=== PATIENT | female | born 1985 | race Caucasian/White ===

== ENCOUNTER 2016-05-23 09:28 | Emergency (ER) | payer OTHER ==
[~2016-05-23 09:28] MED LIST: ACET50TA PO; ANUS2.5C2 TOP; COLA100C PO; DIBU0.5O TOP; FISH1000 PO; IBUP-1114 PO; MILKSUS PO; PREN1TAB11 PO; TUMS500C PO
[2016-05-23] MEDS ORDERED: KETOROLAC 30 MG/ML VIAL (J1885) As Ordered ONE (10:08)
[2016-05-23] MEDS ORDERED: GASTROGRAFIN SOLUTION 30ML (Q9963) As Ordered ONE (10:08)
[2016-05-23 10:22] LABS: BASO # 0.1 K/mm3 (0.0-0.2); BASO % 0.5 % (0.0-1.0); EOS # 0.1 K/mm3 (0.0-0.50); EOS % 1.2 % (0.0-3.0); LARGE UNSTAINED CELL # 0.1 K/mm3 (0.0-0.4); LARGE UNSTAINED CELL % 1.3 % (0.0-4.0); LYMPH % 18.2 % (24.0-44.0); MEAN CORPUSCULAR HEMOGLOBIN 30.2 pg (27.0-33.0); MEAN CORPUSCULAR HGB CONC 33.3 g/dl (32.0-36.5); MEAN CORPUSCULAR VOLUME 90.6 fl (80.0-96.0); MONO # 0.6 K/mm3 (0.0-0.8); MONO % 5.4 % (0.0-5.0); NEUTROPHILS % 73.4 % (36.0-66.0); PLATELET COUNT, AUTOMATED 346 k/mm3 (150-450); RED CELL DISTRIBUTION WIDTH 12.3 % (11.5-14.5); WHITE BLOOD COUNT 10.8 K/mm3 (4.0-10.0)
[2016-05-23 10:47] LABS: ALBUMIN 3.7 GM/DL (3.2-5.2); ALBUMIN/GLOBULIN RATIO 0.97 (1.00-1.93); ALKALINE PHOSPHATASE 100 U/L (45-117); ALT/SGPT 24 U/L (12-78); ANION GAP 10 MEQ/L (8-16); AST/SGOT 16 U/L (15-37); BILIRUBIN,DIRECT < 0.1 MG/DL (0.0-0.2); BILIRUBIN,TOTAL 0.5 MG/DL (0.2-1.0); BLOOD UREA NITROGEN 15 MG/DL (7-18); CALCIUM LEVEL 8.4 MG/DL (8.5-10.1); CARBON DIOXIDE LEVEL 26 MEQ/L (21-32); CHLORIDE LEVEL 105 MEQ/L (98-107); GLOMERULAR FILTRATION RATE > 60.0 (>60); GLUCOSE, FASTING 87 MG/DL (70-105); POTASSIUM SERUM 3.9 MEQ/L (3.5-5.1); SODIUM LEVEL 141 MEQ/L (136-145); TOTAL PROTEIN 7.5 GM/DL (6.4-8.2)
--- NOTE | 2016-05-23 12:13 | REP ---
CT STUDY OF THE ABDOMEN AND PELVIS WITH ORAL BUT WITHOUT IV CONTRAST: HISTORY: Ovarian cyst, question stone or appendicitis. Right lower quadrant pain. No comparison imaging. CT FINDINGS: Preliminary lining scrubber radiograph is noncontributory. The lung bases are clear. The liver and the spleen are normal in size and homogeneous in texture. No adrenal lesion is seen. Pancreas is unremarkable. No gallbladder abnormality is observed. There is no evidence of hydronephrosis affecting either kidney. No intrarenal calculus mass or cyst is seen. Normal appendix is seen posterior to the cecum in the right mid to lower abdomen. Small and large intestinal bowel loops are unremarkable. No ureteral stone or bladder calculus is seen. There are phleboliths in the left pelvis. Uterus is tipped slightly to the right. No ovarian mass or cyst is seen. Normal inguinal lymph nodes are seen bilaterally. No pelvic mass or adenopathy is seen. No abdominal wall defect or bony destructive lesion seen. IMPRESSION: No acute abdominal or pelvic abnormality. Normal appendix seen. No urinary tract calculus or hydronephrosis seen. Signed by John Gordon MD 05/23/2016 02:01 P
--- NOTE | 2016-05-23 12:20 | EDDOCDS ---
Nurse's Notes [facility] Name: Yudy Dumont Age: 31 yrs Sex: Female : 1985 Arrival Date: 05/23/2016 Time: 09:28 Bed I3 / M3 Private MD: Alison Rodriguez [facility] Diagnosis: Lower abdominal pain, unspecified-rlq;Urinary tract infection, site not specified Presentation: 05/23 09:33 Presenting complaint: Patient states: Was sent by [facility] for r/o appe based on jo3 RLQ pain. Pain started Thursday and has gotten progressively worse. Risk factors: the patient reports no vaginal bleeding. Adult Sepsis Screening: The patient does not have new or worsening altered mentation. Patient's respiratory rate is less than 22. Systolic blood pressure is greater than 100. Patient has a qSOFA score of 0- Negative Sepsis Screen. Suicide/Homicide risk assessment- the patient denies having any suicidal and/or homicidal ideations and does not present with any other emotional, behavioral or mental health complaints. 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 Transition of care: patient was not received from another setting of care. 09:33 Acuity: LEXI Level 3 jo3 09:33 Method Of Arrival: Ambulance jo3 Triage Assessment: 09:36 General: Appears in no apparent distress, Behavior is appropriate for age, cooperative. jo3 Pain: Pain currently is 6 out of 10 on a pain scale. At worst was 8 out of 10 on a pain scale. Pt Declines HIV testing. Neurological: Level of Consciousness is awake, alert, Oriented to person, place, time. Respiratory: Airway is patent Respiratory effort is even, unlabored. Derm: Skin is pink, warm & dry. RING FACER: 09:36 LMP 05/05/2016 jo3 Historical: - Allergies: No known drug Allergies; - Home Meds: 1. Nexplanon implanted BC - PMHx: none; - PSHx: left ACL reconstruction; - Social history: Smoking status: Patient uses tobacco products, heavy tobacco smoker. No barriers to communication noted, The patient speaks fluent Filipino, Speaks appropriately for age. - Family history: Not pertinent. - : The pt / caregiver states he / she is not on anticoagulants. Home medication list is obtained from the patient. - Exposure Risk Screening:: None identified. Screenin:12 Screening information is obtained from the patient. Fall risk: No risks identified. pml Assistance ADL's: requires no assistance with activities of daily living. Abuse/DV Screen: The patient / caregiver reports he/she is: not in a situation that causes fear, pain or injury. Nutritional screening: No deficits noted. Advance Directives: Currently, there is no health care proxy. home support is adequate. Assessment: 10:12 General: Appears in no apparent distress, comfortable, Behavior is appropriate for age, pml cooperative. Pain: Location: suprapubic area and right lower quadrant Pain currently is 5 out of 10 on a pain scale. Quality of pain is described as aching. Neurological: Level of Consciousness is awake, alert, Oriented to person, place, time. Cardiovascular: Capillary refill < 3 seconds. Respiratory: Airway is patent Respiratory effort is even, unlabored, Respiratory pattern is regular, symmetrical. GI: Abdomen is non- distended Bowel sounds present X 4 quads. Abd is soft X 4 quads. Derm: Skin is pink, warm & dry. 11:37 General: pt to CT scan - tolerated without complaints. resps easy and unlabored, skin pml p/w/d . 12:18 General: Appears in no apparent distress, comfortable, Behavior is appropriate for age, pml cooperative. Pain: Location: suprapubic area Pain currently is 3 out of 10 on a pain scale. Neurological: Level of Consciousness is awake, alert, Oriented to person, place, time. Cardiovascular: Capillary refill < 3 seconds. Respiratory: Airway is patent Respiratory effort is even, unlabored. Derm: Skin is pink, warm & dry. Vital Signs: 09:30 BP 132 / 76; Pulse 91; Resp 18 S; Temp 98.1(O); Pulse Ox 99% on R/A; Weight 76.2 kg dd6 (R); Height 5 ft. 4 in. (162.56 cm) (R); 10:53 Pain 2/10; kc3 11:57 BP 124 / 75; Pulse 91; Resp 18; Temp 96.6(O); Pulse Ox 99% on R/A; Pain 1/10; rn1 09:30 Body Mass Index 28.84 (76.20 kg, 162.56 cm) dd6 Vitals: 09:30 Log In Time: May 23, 2016 at 09:28. dd6 ED Course: 09:29 Patient visited by Nicole Osorio, Water Plumber. lbd 09:29 Patient moved to Waiting lbd 09:30 [facility] is Private Physician. lbd 09:32 Patient moved to Pre RCE dd6 09:35 Triage Initiated jo3 09:38 Patient visited by Kathy Addison RN. jo3 09:38 Yoselin Jay PA-C is PHCP. dt4 09:38 Altagracia Cline MD is Attending Physician. dt4 09:38 Patient visited by Yoselin Jay PA-C. dt4 09:38 Patient moved to Triage 2 jo3 09:55 Patient moved to I3 / M3 jo3 10:03 [facility] Payment Agreement was scanned into [employer] and attached to record. lg 10:12 The patient / caregiver is instructed regarding the plan of care and ED course. Patient pml has correct armband on for positive identification. Placed in gown. Bed in low position. Call light in reach. Side rails up X2. 10:12 Inserted peripheral IV: 20gauge IV in left antecubital area and blood collected. pml Patient tolerated the procedure well. 10:16 Patient visited by Aleksandra Govea,CLYDE. pml 10:53 Patient visited by Kellie Antonio,CLYDE. kc3 11:37 Aleksandra Govea,CLYDE is Primary Nurse. pml 11:37 Patient visited by Aleksandra Govea,CLYDE. pml 12:10 [facility] is Referral Physician. dt4 12:15 CT ABD & PELVIS: Oral Contrast Only Returned. EDMS 12:18 Discontinued lock intact, bleeding controlled, pressure dressing applied, No pml redness/swelling at site. No procedures done that require assistance. Administered Medications: 10:15 Drug: Diatrizoate Meglumine & Sodium 10 ml [diatrizoate meglumine and diat.sodium 66 kc3 %-10 % oral solution (10 mL)] Route: PO; 10:17 Drug: NS 0.9% 1000 ml [sodium chloride 0.9 % intravenous solution] Route: IV; Rate: kc3 bolus; Site: left antecubital; 12:19 Follow up: IV Status: Completed infusion; IV Intake: 1000ml pml 10:18 Drug: ketorolac 30 mg [ketorolac 30 mg/mL (1 mL) injection solution (1 mL)] Route: IVP; kc3 Site: left antecubital; 10:53 Follow up: Pain 06/06 Adult kc3 10:53 Drug: Diatrizoate Meglumine & Sodium 10 ml [diatrizoate meglumine and diat.sodium 66 kc3 %-10 % oral solution (10 mL)] Route: PO; Point of Care Testing: Urine : 10:12 hCG Reading: Negative; Control Reading: Positive; pml Ranges: Intake: 12:19 IV: 1000.00ml; Total: 1000.00ml. pml Order Results: Lab Order: Basic Metabolic Profile; SPEC'M 05/23/16 10:07 Test: GLUCOSE, FASTING; Value: 87; Range: 70-105; Units: MG/DL; Status: F Test: BLOOD UREA NITROGEN; Value: 15; Range: 7-18; Units: MG/DL; Status: F Test: CREATININE FOR GFR; Value: 1.00; Range: 0.55-1.02; Units: MG/DL; Status: F Test: GLOMERULAR FILTRATION RATE; Value: > 60.0; Range: >60; Status: F Test: SODIUM LEVEL; Value: 141; Range: 136-145; Units: MEQ/L; Status: F Test: POTASSIUM SERUM; Value: 3.9; Range: 3.5-5.1; Units: MEQ/L; Status: F Test: CHLORIDE LEVEL; Value: 105; Range: 98-107; Units: MEQ/L; Status: F Test: CARBON DIOXIDE LEVEL; Value: 26; Range: 21-32; Units: MEQ/L; Status: F Test: ANION GAP; Value: 10; Range: 8-16; Units: MEQ/L; Status: F Test: CALCIUM LEVEL; Value: 8.4; Range: 8.5-10.1; Abnormal: Below low normal; Units: MG/DL; Status: F Test Note: ; Units are mL/min/1.73 m2 Chronic Kidney Disease Staging per NKF: Stage I & II GFR >=60 Normal to Mildly Decreased Stage III GFR 30-59 Moderately Decreased Stage IV GFR 15-29 Severely Decreased Stage V GFR <15 Very Little GFR Left ESRD GFR <15 on MAGAZINE SUPERVISOR Lab Order: CBC with Diff; SPEC'M 05/23/16 10:07 Test: WHITE BLOOD COUNT; Value: 10.8; Range: 4.0-10.0; Abnormal: Above high normal; Units: K/mm3; Status: F Test: RED BLOOD COUNT; Value: 4.67; Range: 4.00-5.40; Units: M/mm3; Status: F Test: HEMOGLOBIN; Value: 14.1; Range: 12.0-16.0; Units: g/dl; Status: F Test: HEMATOCRIT; Value: 42.3; Range: 36.0-47.0; Units: %; Status: F Test: MEAN CORPUSCULAR VOLUME; Value: 90.6; Range: 80.0-96.0; Units: fl; Status: F Test: MEAN CORPUSCULAR HEMOGLOBIN; Value: 30.2; Range: 27.0-33.0; Units: pg; Status: F Test: MEAN CORPUSCULAR HGB CONC; Value: 33.3; Range: 32.0-36.5; Units: g/dl; Status: F Test: RED CELL DISTRIBUTION WIDTH; Value: 12.3; Range: 11.5-14.5; Units: %; Status: F Test: PLATELET COUNT, AUTOMATED; Value: 346; Range: 150-450; Units: k/mm3; Status: F Test: NEUTROPHILS %; Value: 73.4; Range: 36.0-66.0; Abnormal: Above high normal; Units: %; Status: F Test: LYMPH %; Value: 18.2; Range: 24.0-44.0; Abnormal: Below low normal; Units: %; Status: F Test: MONO %; Value: 5.4; Range: 0.0-5.0; Abnormal: Above high normal; Units: %; Status: F Test: EOS %; Value: 1.2; Range: 0.0-3.0; Units: %; Status: F Test: BASO %; Value: 0.5; Range: 0.0-1.0; Units: %; Status: F Test: LARGE UNSTAINED CELL %; Value: 1.3; Range: 0.0-4.0; Units: %; Status: F Test: NEUTROPHILS #; Value: 8.0; Range: 1.8-7.7; Abnormal: Above high normal; Units: K/mm3; Status: F Test: LYMPH #; Value: 2.0; Range: 1.5-4.5; Units: K/mm3; Status: F Test: MONO #; Value: 0.6; Range: 0.0-0.8; Units: K/mm3; Status: F Test: EOS #; Value: 0.1; Range: 0.0-0.50; Units: K/mm3; Status: F Test: BASO #; Value: 0.1; Range: 0.0-0.2; Units: K/mm3; Status: F Test: LARGE UNSTAINED CELL #; Value: 0.1; Range: 0.0-0.4; Units: K/mm3; Status: F Lab Order: Lipase; SPEC' 05/23/16 10:07 Test: LIPASE; Value: 109; Range: 73-393; Units: U/L; Status: F Lab Order: Liver Profile; SPEC' 05/23/16 10:07 Test: AST/SGOT; Value: 16; Range: 15-37; Units: U/L; Status: F Test: ALT/SGPT; Value: 24; Range: 12-78; Units: U/L; Status: F Test: ALKALINE PHOSPHATASE; Value: 100; Range: 45-117; Units: U/L; Status: F Test: BILIRUBIN,TOTAL; Value: 0.5; Range: 0.2-1.0; Units: MG/DL; Status: F Test: BILIRUBIN,DIRECT; Value: < 0.1; Range: 0.0-0.2; Units: MG/DL; Status: F Test: TOTAL PROTEIN; Value: 7.5; Range: 6.4-8.2; Units: GM/DL; Status: F Test: ALBUMIN; Value: 3.7; Range: 3.2-5.2; Units: GM/DL; Status: F Test: ALBUMIN/GLOBULIN RATIO; Value: 0.97; Range: 1.00-1.93; Abnormal: Below low normal; Status: F Lab Order: Urinalysis; SPEC' 05/23/16 10:07 Test: APPEARANCE, URINE; Value: CLOUDY; Range: CLEAR; Abnormal: Above high normal; Status: F Test: COLOR, URINE; Value: YELLOW; Range: YELLOW; Status: F Test: PH,URINE; Value: 5.0; Range: 5.0-9.0; Units: UNITS; Status: F Test: SPECIFIC GRAVITY URINE AUTO; Value: 1.023; Range: 1.002-1.035; Status: F Test: PROTEIN, URINE AUTO; Value: NEGATIVE; Range: NEGATIVE; Units: mg/dL; Status: F Test: GLUCOSE, URINE (UA) AUTO; Value: NEGATIVE; Range: NEGATIVE; Units: mg/dL; Status: F Test: KETONE, URINE AUTO; Value: TRACE; Range: NEGATIVE; Abnormal: Above high normal; Units: mg/dL; Status: F Test: UROBILINOGEN, URINE AUTO; Value: 2.0; Range: 0.0-2.0; Abnormal: Above high normal; Units: mg/dL; Status: F Test: BILIRUBIN, URINE AUTO; Value: NEGATIVE; Range: NEGATIVE; Status: F Test: NITRITE, URINE AUTO; Value: NEGATIVE; Range: NEGATIVE; Status: F Test: LEUKOCYTE ESTERASE, URINE AUTO; Value: 1+; Range: NEGATIVE; Abnormal: Above high normal; Status: F Test: BLOOD, URINE BLOOD; Value: 2+; Range: NEGATIVE; Abnormal: Above high normal; Status: F Test: WBC, URINE AUTO; Value: 3; Range: 0-3; Units: /HPF; Status: F Test: RBC, URINE AUTO; Value: 6; Range: 0-3; Abnormal: Above high normal; Units: /HPF; Status: F Test: BACTERIA, URINE AUTO; Value: 1+; Range: NEGATIVE; Abnormal: Above high normal; Status: F Test: SQUAMOUS EPITHELIAL CELL UR AU; Value: 22; Range: 0-6; Units: /HPF; Status: F Test: MUCUS, URINE; Value: SMALL; Range: NEGATIVE; Status: F Test: HYALINE CAST, URINE AUTO; Value: 0; Range: 0-1; Units: /LPF; Status: F Lab Order: CRP; SPEC'M 05/23/16 10:07 Test: C REACTIVE PROTEIN QUANTITATIV; Value: 4.39; Range: 0.00-0.30; Abnormal: Above high normal; Units: MG/DL; Status: F Radiology Order: CT ABD & PELVIS: Oral Contrast Only Test: CT ABD & PELVIS: Oral Contrast Only REASON FOR EXAMINATION: ?STONE, OV CYST;Appendicitis/RLQ Pain; CT STUDY OF THE ABDOMEN AND PELVIS WITH ORAL BUT WITHOUT IV CONTRAST:; ; HISTORY: Ovarian cyst, question stone or appendicitis. Right lower quadrant; pain.; ; No comparison imaging.; ; CT FINDINGS: Preliminary production assembly operator radiograph is noncontributory. The lung bases; are clear. The liver and the spleen are normal in size and homogeneous in; texture. No adrenal lesion is seen. Pancreas is unremarkable. No gallbladder; abnormality is observed. There is no evidence of hydronephrosis affecting either; kidney. No intrarenal calculus mass or cyst is seen. Normal appendix is seen; posterior to the cecum in the right mid to lower abdomen. Small and large; intestinal bowel loops are unremarkable. No ureteral stone or bladder calculus; is seen. There are phleboliths in the left pelvis. Uterus is tipped slightly to; the right. No ovarian mass or cyst is seen. Normal inguinal lymph nodes are; seen bilaterally. No pelvic mass or adenopathy is seen. No abdominal wall; defect or bony destructive lesion seen.; ; IMPRESSION:; No acute abdominal or pelvic abnormality. Normal appendix seen. No urinary; tract calculus or hydronephrosis seen.; ; ; ; ; Unreviewed; Outcome: 12:10 Discharge ordered by Provider. dt4 12:18 Discharge Assessment: Patient awake, alert and oriented x 3. No cognitive and/or pml functional deficits noted. Patient verbalized understanding of disposition instructions. patient administered narcotics - no. The following High Risk Discharge criteria are identified: None. Discharged to home ambulatory. Condition: good Condition: stable. Discharge instructions given to patient, Instructed on discharge instructions, follow up and referral plans. medication usage, Demonstrated understanding of instructions, medications, Pt was receptive of discharge instructions/ teaching. Prescriptions given X 2. CT Study completed. Property sent home with patient. 12:19 Patient left the ED. pml Signatures: Dispatcher [employer] EDMS Nicole Osorio, Water Plumber Unit Jose Sandy, Rambo Reg Kathy KhanRN RN jo3 Reji Gaines, HIV PREVENTION SPECIALIST HIV PREVENTION SPECIALIST dd6 Aleksandra Govea RN RN Yoselin Roberts, PA-C PA-C dt4 Steve Bravo rn1 Kellie Antonio,CLYDE RN kc3 Corrections: (The following items were deleted from the chart) 09:38 09:33 Presenting complaint: Patient states: Was sent by [facility] for r/o appe jo3 based on RLQ pain jo3 MTDD
--- NOTE | 2016-05-23 12:20 | EDDOCDS ---
Physician Documentation [facility] Name: Yudy Dumont Age: 31 yrs Sex: Female : 1985 Arrival Date: 05/23/2016 Time: 09:28 Bed I3 / M3 Private MD: Alison Rodriguez [facility] Disposition: 05/23/16 12:10 Discharged to Home/Self Care. Impression: Lower abdominal pain, unspecified - rlq, Urinary tract infection, site not specified. - Condition is Stable. - Discharge Instructions: Urinary Tract Infection, Abdominal Pain, Women. - Prescriptions for Pyridium 200 mg Oral Tablet - take 1 tablet by ORAL route every 8 hours for 2 days; 6 tablet. Macrobid 100 mg Oral Capsule - take 100 milligrams by ORAL route every 12 hours for 7 days; 14 capsule. - Medication Reconciliation, Local Pharmacy Hours form. - Follow up: Emergency Department; When: As needed; Reason: Worsening of conditions. Follow up: Alison Rodriguez [facility]; When: 2 - 3 days; Reason: Wound/Symptom Recheck, Recheck today's complaints, Continuance of care. - Problem is new. - Symptoms have improved. Historical: - Allergies: No known drug Allergies; - Home Meds: 1. Nexplanon implanted BC - PMHx: none; - PSHx: left ACL reconstruction; - Social history: Smoking status: Patient uses tobacco products, heavy tobacco smoker. No barriers to communication noted, The patient speaks fluent Croatian, Speaks appropriately for age. - Family history: Not pertinent. - : The pt / caregiver states he / she is not on anticoagulants. Home medication list is obtained from the patient. - Exposure Risk Screening:: None identified. 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 4 in. (162.56 cm) (R); 10:53 Pain 2/10; kc3 11:57 BP 124 / 75; Pulse 91; Resp 18; Temp 96.6(O); Pulse Ox 99% on R/A; Pain 1/10; rn1 09:30 Body Mass Index 28.84 (76.20 kg, 162.56 cm) dd6 MDM: 09:50 Financial registration complete. lg 09:51 NS 0.9% 1000 ml IV at bolus once ordered. dt4 09:51 ketorolac 30 mg IVP once ordered. dt4 09:51 IV Saline Lock ordered. dt4 09:51 Undress patient appropriately for examination ordered. dt4 09:51 UCG by Nursing ordered. dt4 09:52 Basic Metabolic Profile Ordered. EDMS 09:52 CBC with Diff Ordered. EDMS 09:52 Lipase Ordered. EDMS 09:52 Liver Profile Ordered. EDMS 09:52 Urinalysis Ordered. EDMS 09:52 CRP Ordered. EDMS 09:53 Urine Culture Ordered. EDMS 09:53 NOTHING BY MOUTH+DIET ordered. EDMS 10:03 [facility] Payment Agreement was scanned into [employer] and attached to record. lg 10:18 Diatrizoate Meglumine & Sodium Liquid 10 ml PO once; mix in 290cc of water ordered. kc3 10:18 Diatrizoate Meglumine & Sodium Liquid 10 ml PO once; mix in 290cc of water - give at kc3 1045 ordered. 11:27 CT ABD & PELVIS: Oral Contrast Only Ordered. EDMS Point of Care Testing: Urine : 10:12 hCG Reading: Negative; Control Reading: Positive; pml Ranges: Administered Medications: 10:15 Drug: Diatrizoate Meglumine & Sodium 10 ml [diatrizoate meglumine and diat.sodium 66 kc3 %-10 % oral solution (10 mL)] Route: PO; 10:17 Drug: NS 0.9% 1000 ml [sodium chloride 0.9 % intravenous solution] Route: IV; Rate: kc3 bolus; Site: left antecubital; 12:19 Follow up: IV Status: Completed infusion; IV Intake: 1000ml pml 10:18 Drug: ketorolac 30 mg [ketorolac 30 mg/mL (1 mL) injection solution (1 mL)] Route: IVP; kc3 Site: left antecubital; 10:53 Follow up: Pain / Adult kc3 10:53 Drug: Diatrizoate Meglumine & Sodium 10 ml [diatrizoate meglumine and diat.sodium 66 kc3 %-10 % oral solution (10 mL)] Route: PO; Signatures: Dispatcher [employer] EDMS Maddi Jose, Reg Reg lg Kathy AddisonRN RN jo3 Aleksandra GoveaRN RN Yoselin Roberts PA-C PA-C dt4 Kellie AntonioRN RN kc3 The chart was reviewed and I authenticate all verbal orders and agree with the evaluation and treatment provided.Corrections: (The following items were deleted from the chart) 11:12 09:53 CT ABD & PELVIS WITH CONTRAST+CT ordered. EDMS EDMS 11:32 11:10 CT ABD & PELVIS W/O CONTRAST+CT ordered. EDMS EDMS Attachments: 10:03 [facility] [place] Agreement lg MTDD
--- NOTE | 2016-05-25 13:21 | EDDOCDS ---
Physician Documentation [facility] Name: Yudy Dumont Age: 31 yrs Sex: Female : 1985 Arrival Date: 05/23/2016 Time: 09:28 Bed I3 / M3 Private MD: Alison Rodriguez [facility] Disposition: 05/23/16 12:10 Discharged to Home/Self Care. Impression: Lower abdominal pain, unspecified - rlq, Urinary tract infection, site not specified. - Condition is Stable. - Discharge Instructions: Urinary Tract Infection, Abdominal Pain, Women. - Prescriptions for Pyridium 200 mg Oral Tablet - take 1 tablet by ORAL route every 8 hours for 2 days; 6 tablet. Macrobid 100 mg Oral Capsule - take 100 milligrams by ORAL route every 12 hours for 7 days; 14 capsule. - Medication Reconciliation, Local Pharmacy Hours form. - Follow up: Emergency Department; When: As needed; Reason: Worsening of conditions. Follow up: Alison Rodriguez [facility]; When: 2 - 3 days; Reason: Wound/Symptom Recheck, Recheck today's complaints, Continuance of care. - Problem is new. - Symptoms have improved. Historical: - Allergies: No known drug Allergies; - Home Meds: 1. Nexplanon implanted BC - PMHx: none; - PSHx: left ACL reconstruction; - Social history: Smoking status: Patient uses tobacco products, heavy tobacco smoker. No barriers to communication noted, The patient speaks fluent Croatian, Speaks appropriately for age. - Family history: Not pertinent. - : The pt / caregiver states he / she is not on anticoagulants. Home medication list is obtained from the patient. - Exposure Risk Screening:: None identified. 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 4 in. (162.56 cm) (R); 10:53 Pain 2/10; kc3 11:57 BP 124 / 75; Pulse 91; Resp 18; Temp 96.6(O); Pulse Ox 99% on R/A; Pain 1/10; rn1 09:30 Body Mass Index 28.84 (76.20 kg, 162.56 cm) dd6 MDM: 09:50 Financial registration complete. lg 09:51 NS 0.9% 1000 ml IV at bolus once ordered. dt4 09:51 ketorolac 30 mg IVP once ordered. dt4 09:51 IV Saline Lock ordered. dt4 09:51 Undress patient appropriately for examination ordered. dt4 09:51 UCG by Nursing ordered. dt4 09:52 Basic Metabolic Profile Ordered. EDMS 09:52 CBC with Diff Ordered. EDMS 09:52 Lipase Ordered. EDMS 09:52 Liver Profile Ordered. EDMS 09:52 Urinalysis Ordered. EDMS 09:52 CRP Ordered. EDMS 09:53 Urine Culture Ordered. EDMS 09:53 NOTHING BY MOUTH+DIET ordered. EDMS 10:03 [facility] Payment Agreement was scanned into [employer] and attached to record. lg 10:18 Diatrizoate Meglumine & Sodium Liquid 10 ml PO once; mix in 290cc of water ordered. kc3 10:18 Diatrizoate Meglumine & Sodium Liquid 10 ml PO once; mix in 290cc of water - give at kc3 1045 ordered. 11:27 CT ABD & PELVIS: Oral Contrast Only Ordered. EDMS 13:37 T-Sheet-- Draft Copy was scanned into [employer] and attached to record. gb 13:37 PCR was scanned into [employer] and attached to record. gb 13:37 Radiology Report was scanned into [employer] and attached to record. gb Point of Care Testing: Urine : 10:12 hCG Reading: Negative; Control Reading: Positive; pml Ranges: Administered Medications: 10:15 Drug: Diatrizoate Meglumine & Sodium 10 ml [diatrizoate meglumine and diat.sodium 66 kc3 %-10 % oral solution (10 mL)] Route: PO; 10:17 Drug: NS 0.9% 1000 ml [sodium chloride 0.9 % intravenous solution] Route: IV; Rate: kc3 bolus; Site: left antecubital; 12:19 Follow up: IV Status: Completed infusion; IV Intake: 1000ml pml 10:18 Drug: ketorolac 30 mg [ketorolac 30 mg/mL (1 mL) injection solution (1 mL)] Route: IVP; kc3 Site: left antecubital; 10:53 Follow up: Pain 2/ Adult kc3 10:53 Drug: Diatrizoate Meglumine & Sodium 10 ml [diatrizoate meglumine and diat.sodium 66 kc3 %-10 % oral solution (10 mL)] Route: PO; Signatures: Dispatcher MedHost EDMS Shin Susan, Reg Reg gb Maddi Jose, Reg Reg lg Kathy AddisonRN RN jo3 Aleksandra Govea RN RN pml Tschudi, Diane, PA-C PA-Alan dt4 Kellie Antonio RN RN kc3 The chart was reviewed and I authenticate all verbal orders and agree with the evaluation and treatment provided.Corrections: (The following items were deleted from the chart) 11:12 09:53 CT ABD & PELVIS WITH CONTRAST+CT ordered. EDMS EDMS 11:32 11:10 CT ABD & PELVIS W/O CONTRAST+CT ordered. EDMS EDMS Attachments: 10:03 [facility] Payment Agreement lg 13:37 T-Sheet-- Draft Copy gb Chart Complete [facility]
--- NOTE | 2016-05-25 13:21 | EDDOCDS ---
Physician Documentation [facility] Name: Yudy Dumont Age: 31 yrs Sex: Female : 1985 Arrival Date: 05/23/2016 Time: 09:28 Bed I3 / M3 Private MD: Alison Rodriguez [facility] Disposition: 05/23/16 12:10 Discharged to Home/Self Care. Impression: Lower abdominal pain, unspecified - rlq, Urinary tract infection, site not specified. - Condition is Stable. - Discharge Instructions: Urinary Tract Infection, Abdominal Pain, Women. - Prescriptions for Pyridium 200 mg Oral Tablet - take 1 tablet by ORAL route every 8 hours for 2 days; 6 tablet. Macrobid 100 mg Oral Capsule - take 100 milligrams by ORAL route every 12 hours for 7 days; 14 capsule. - Medication Reconciliation, Local Pharmacy Hours form. - Follow up: Emergency Department; When: As needed; Reason: Worsening of conditions. Follow up: Alison Rodriguez [facility]; When: 2 - 3 days; Reason: Wound/Symptom Recheck, Recheck today's complaints, Continuance of care. - Problem is new. - Symptoms have improved. Historical: - Allergies: No known drug Allergies; - Home Meds: 1. Nexplanon implanted BC - PMHx: none; - PSHx: left ACL reconstruction; - Social history: Smoking status: Patient uses tobacco products, heavy tobacco smoker. No barriers to communication noted, The patient speaks fluent Armenian, Speaks appropriately for age. - Family history: Not pertinent. - : The pt / caregiver states he / she is not on anticoagulants. Home medication list is obtained from the patient. - Exposure Risk Screening:: None identified. 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 4 in. (162.56 cm) (R); 10:53 Pain 2/10; kc3 11:57 BP 124 / 75; Pulse 91; Resp 18; Temp 96.6(O); Pulse Ox 99% on R/A; Pain 1/10; rn1 09:30 Body Mass Index 28.84 (76.20 kg, 162.56 cm) dd6 MDM: 09:50 Financial registration complete. lg 09:51 NS 0.9% 1000 ml IV at bolus once ordered. dt4 09:51 ketorolac 30 mg IVP once ordered. dt4 09:51 IV Saline Lock ordered. dt4 09:51 Undress patient appropriately for examination ordered. dt4 09:51 UCG by Nursing ordered. dt4 09:52 Basic Metabolic Profile Ordered. EDMS 09:52 CBC with Diff Ordered. EDMS 09:52 Lipase Ordered. EDMS 09:52 Liver Profile Ordered. EDMS 09:52 Urinalysis Ordered. EDMS 09:52 CRP Ordered. EDMS 09:53 Urine Culture Ordered. EDMS 09:53 NOTHING BY MOUTH+DIET ordered. EDMS 10:03 [facility] Payment Agreement was scanned into [employer] and attached to record. lg 10:18 Diatrizoate Meglumine & Sodium Liquid 10 ml PO once; mix in 290cc of water ordered. kc3 10:18 Diatrizoate Meglumine & Sodium Liquid 10 ml PO once; mix in 290cc of water - give at kc3 1045 ordered. 11:27 CT ABD & PELVIS: Oral Contrast Only Ordered. EDMS 13:37 T-Sheet-- Draft Copy was scanned into [employer] and attached to record. gb 13:37 PCR was scanned into [employer] and attached to record. gb 13:37 Radiology Report was scanned into [employer] and attached to record. gb Point of Care Testing: Urine : 10:12 hCG Reading: Negative; Control Reading: Positive; pml Ranges: Administered Medications: 10:15 Drug: Diatrizoate Meglumine & Sodium 10 ml [diatrizoate meglumine and diat.sodium 66 kc3 %-10 % oral solution (10 mL)] Route: PO; 10:17 Drug: NS 0.9% 1000 ml [sodium chloride 0.9 % intravenous solution] Route: IV; Rate: kc3 bolus; Site: left antecubital; 12:19 Follow up: IV Status: Completed infusion; IV Intake: 1000ml pml 10:18 Drug: ketorolac 30 mg [ketorolac 30 mg/mL (1 mL) injection solution (1 mL)] Route: IVP; kc3 Site: left antecubital; 10:53 Follow up: Pain 2/ Adult kc3 10:53 Drug: Diatrizoate Meglumine & Sodium 10 ml [diatrizoate meglumine and diat.sodium 66 kc3 %-10 % oral solution (10 mL)] Route: PO; Signatures: Dispatcher [employer] EDMS Shin Susan, Reg Reg gb Maddi Jose, Reg Reg lg Kathy AddisonRN RN jo3 Aleksandra Govea RN RN pml Tschudi, Diane, PA-C PA-Alan dt4 Kellie Antonio RN RN kc3 The chart was reviewed and I authenticate all verbal orders and agree with the evaluation and treatment provided.Corrections: (The following items were deleted from the chart) 11:12 09:53 CT ABD & PELVIS WITH CONTRAST+CT ordered. EDMS EDMS 11:32 11:10 CT ABD & PELVIS W/O CONTRAST+CT ordered. EDMS EDMS Attachments: 10:03 [facility] Payment Agreement lg 13:37 T-Sheet-- Draft Copy gb Chart Complete [facility]
--- NOTE | 2016-05-25 13:21 | EDDOCDS ---
Nurse's Notes [facility] Name: Yudy Dumont Age: 31 yrs Sex: Female : 1985 Arrival Date: 05/23/2016 Time: 09:28 Bed I3 / M3 Private MD: Alison Rodriguez [facility] Diagnosis: Lower abdominal pain, unspecified-rlq;Urinary tract infection, site not specified Presentation: 05/23 09:33 Presenting complaint: Patient states: Was sent by [facility] for r/o appe based on jo3 RLQ pain. Pain started Thursday and has gotten progressively worse. Risk factors: the patient reports no vaginal bleeding. Adult Sepsis Screening: The patient does not have new or worsening altered mentation. Patient's respiratory rate is less than 22. Systolic blood pressure is greater than 100. Patient has a qSOFA score of 0- Negative Sepsis Screen. Suicide/Homicide risk assessment- the patient denies having any suicidal and/or homicidal ideations and does not present with any other emotional, behavioral or mental health complaints. 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 Transition of care: patient was not received from another setting of care. 09:33 Acuity: LEXI Level 3 jo3 09:33 Method Of Arrival: Ambulance jo3 Triage Assessment: 09:36 General: Appears in no apparent distress, Behavior is appropriate for age, cooperative. jo3 Pain: Pain currently is 6 out of 10 on a pain scale. At worst was 8 out of 10 on a pain scale. Pt Declines HIV testing. Neurological: Level of Consciousness is awake, alert, Oriented to person, place, time. Respiratory: Airway is patent Respiratory effort is even, unlabored. Derm: Skin is pink, warm & dry. 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 Nexplanon implanted BC - PMHx: none; - PSHx: left ACL reconstruction; - Social history: Smoking status: Patient uses tobacco products, heavy tobacco smoker. No barriers to communication noted, The patient speaks fluent Portuguese, Speaks appropriately for age. - Family history: Not pertinent. - : The pt / caregiver states he / she is not on anticoagulants. Home medication list is obtained from the patient. - Exposure Risk Screening:: None identified. Screenin:12 Screening information is obtained from the patient. Fall risk: No risks identified. pml Assistance ADL's: requires no assistance with activities of daily living. Abuse/DV Screen: The patient / caregiver reports he/she is: not in a situation that causes fear, pain or injury. Nutritional screening: No deficits noted. Advance Directives: Currently, there is no health care proxy. home support is adequate. Assessment: 10:12 General: Appears in no apparent distress, comfortable, Behavior is appropriate for age, pml cooperative. Pain: Location: suprapubic area and right lower quadrant Pain currently is 5 out of 10 on a pain scale. Quality of pain is described as aching. Neurological: Level of Consciousness is awake, alert, Oriented to person, place, time. Cardiovascular: Capillary refill < 3 seconds. Respiratory: Airway is patent Respiratory effort is even, unlabored, Respiratory pattern is regular, symmetrical. GI: Abdomen is non- distended Bowel sounds present X 4 quads. Abd is soft X 4 quads. Derm: Skin is pink, warm & dry. 11:37 General: pt to CT scan - tolerated without complaints. resps easy and unlabored, skin pml p/w/d . 12:18 General: Appears in no apparent distress, comfortable, Behavior is appropriate for age, pml cooperative. Pain: Location: suprapubic area Pain currently is 3 out of 10 on a pain scale. Neurological: Level of Consciousness is awake, alert, Oriented to person, place, time. Cardiovascular: Capillary refill < 3 seconds. Respiratory: Airway is patent Respiratory effort is even, unlabored. Derm: Skin is pink, warm & dry. Vital Signs: 09:30 BP 132 / 76; Pulse 91; Resp 18 S; Temp 98.1(O); Pulse Ox 99% on R/A; Weight 76.2 kg dd6 (R); Height 5 ft. 4 in. (162.56 cm) (R); 10:53 Pain 2/10; kc3 11:57 BP 124 / 75; Pulse 91; Resp 18; Temp 96.6(O); Pulse Ox 99% on R/A; Pain 1/10; rn1 09:30 Body Mass Index 28.84 (76.20 kg, 162.56 cm) dd6 Vitals: 09:30 Log In Time: May 23, 2016 at 09:28. dd6 ED Course: 09:29 Patient visited by Nicole Osorio, Hose Wrapper. lbd 09:29 Patient moved to Waiting lbd 09:30 [facility] is Private Physician. lbd 09:32 Patient moved to Pre RCE dd6 09:35 Triage Initiated jo3 09:38 Patient visited by Kathy Addison,CLYDE. jo3 09:38 Yoselin Jay PA-C is PHCP. dt4 09:38 Altagracia Cline MD is Attending Physician. dt4 09:38 Patient visited by Yoselin Jay PA-C. dt4 09:38 Patient moved to Triage 2 jo3 09:55 Patient moved to I3 / M3 jo3 10:03 [facility] Payment Agreement was scanned into [employer] and attached to record. lg 10:12 The patient / caregiver is instructed regarding the plan of care and ED course. Patient pml has correct armband on for positive identification. Placed in gown. Bed in low position. Call light in reach. Side rails up X2. 10:12 Inserted peripheral IV: 20gauge IV in left antecubital area and blood collected. pml Patient tolerated the procedure well. 10:16 Patient visited by Aleksandra Govea,CLYDE. pml 10:53 Patient visited by Kellie Antonio,CLYDE. kc3 11:37 Aleksandra Govea,RN is Primary Nurse. pml 11:37 Patient visited by Aleksandra Govea,CLYDE. pml 12:10 [facility] is Referral Physician. dt4 12:15 CT ABD & PELVIS: Oral Contrast Only Returned. EDMS 12:18 Discontinued lock intact, bleeding controlled, pressure dressing applied, No pml redness/swelling at site. No procedures done that require assistance. 13:37 T-Sheet-- Draft Copy was scanned into [employer] and attached to record. gb 13:37 PCR was scanned into [employer] and attached to record. gb 13:37 Radiology Report was scanned into [employer] and attached to record. gb Administered Medications: 10:15 Drug: Diatrizoate Meglumine & Sodium 10 ml [diatrizoate meglumine and diat.sodium 66 kc3 %-10 % oral solution (10 mL)] Route: PO; 10:17 Drug: NS 0.9% 1000 ml [sodium chloride 0.9 % intravenous solution] Route: IV; Rate: kc3 bolus; Site: left antecubital; 12:19 Follow up: IV Status: Completed infusion; IV Intake: 1000ml pml 10:18 Drug: ketorolac 30 mg [ketorolac 30 mg/mL (1 mL) injection solution (1 mL)] Route: IVP; kc3 Site: left antecubital; 10:53 Follow up: Pain 06/06 Adult kc3 10:53 Drug: Diatrizoate Meglumine & Sodium 10 ml [diatrizoate meglumine and diat.sodium 66 kc3 %-10 % oral solution (10 mL)] Route: PO; Point of Care Testing: Urine : 10:12 hCG Reading: Negative; Control Reading: Positive; pml Ranges: Intake: 12:19 IV: 1000.00ml; Total: 1000.00ml. pml Order Results: Lab Order: Basic Metabolic Profile; SPEC'M 05/23/16 10:07 Test: GLUCOSE, FASTING; Value: 87; Range: 70-105; Units: MG/DL; Status: F Test: BLOOD UREA NITROGEN; Value: 15; Range: 7-18; Units: MG/DL; Status: F Test: CREATININE FOR GFR; Value: 1.00; Range: 0.55-1.02; Units: MG/DL; Status: F Test: GLOMERULAR FILTRATION RATE; Value: > 60.0; Range: >60; Status: F Test: SODIUM LEVEL; Value: 141; Range: 136-145; Units: MEQ/L; Status: F Test: POTASSIUM SERUM; Value: 3.9; Range: 3.5-5.1; Units: MEQ/L; Status: F Test: CHLORIDE LEVEL; Value: 105; Range: 98-107; Units: MEQ/L; Status: F Test: CARBON DIOXIDE LEVEL; Value: 26; Range: 21-32; Units: MEQ/L; Status: F Test: ANION GAP; Value: 10; Range: 8-16; Units: MEQ/L; Status: F Test: CALCIUM LEVEL; Value: 8.4; Range: 8.5-10.1; Abnormal: Below low normal; Units: MG/DL; Status: F Test Note: ; Units are mL/min/1.73 m2 Chronic Kidney Disease Staging per NKF: Stage I & II GFR >=60 Normal to Mildly Decreased Stage III GFR 30-59 Moderately Decreased Stage IV GFR 15-29 Severely Decreased Stage V GFR <15 Very Little GFR Left ESRD GFR <15 on APPLICATIONS CONSULTANT Lab Order: CBC with Diff; SPEC'M 05/23/16 10:07 Test: WHITE BLOOD COUNT; Value: 10.8; Range: 4.0-10.0; Abnormal: Above high normal; Units: K/mm3; Status: F Test: RED BLOOD COUNT; Value: 4.67; Range: 4.00-5.40; Units: M/mm3; Status: F Test: HEMOGLOBIN; Value: 14.1; Range: 12.0-16.0; Units: g/dl; Status: F Test: HEMATOCRIT; Value: 42.3; Range: 36.0-47.0; Units: %; Status: F Test: MEAN CORPUSCULAR VOLUME; Value: 90.6; Range: 80.0-96.0; Units: fl; Status: F Test: MEAN CORPUSCULAR HEMOGLOBIN; Value: 30.2; Range: 27.0-33.0; Units: pg; Status: F Test: MEAN CORPUSCULAR HGB CONC; Value: 33.3; Range: 32.0-36.5; Units: g/dl; Status: F Test: RED CELL DISTRIBUTION WIDTH; Value: 12.3; Range: 11.5-14.5; Units: %; Status: F Test: PLATELET COUNT, AUTOMATED; Value: 346; Range: 150-450; Units: k/mm3; Status: F Test: NEUTROPHILS %; Value: 73.4; Range: 36.0-66.0; Abnormal: Above high normal; Units: %; Status: F Test: LYMPH %; Value: 18.2; Range: 24.0-44.0; Abnormal: Below low normal; Units: %; Status: F Test: MONO %; Value: 5.4; Range: 0.0-5.0; Abnormal: Above high normal; Units: %; Status: F Test: EOS %; Value: 1.2; Range: 0.0-3.0; Units: %; Status: F Test: BASO %; Value: 0.5; Range: 0.0-1.0; Units: %; Status: F Test: LARGE UNSTAINED CELL %; Value: 1.3; Range: 0.0-4.0; Units: %; Status: F Test: NEUTROPHILS #; Value: 8.0; Range: 1.8-7.7; Abnormal: Above high normal; Units: K/mm3; Status: F Test: LYMPH #; Value: 2.0; Range: 1.5-4.5; Units: K/mm3; Status: F Test: MONO #; Value: 0.6; Range: 0.0-0.8; Units: K/mm3; Status: F Test: EOS #; Value: 0.1; Range: 0.0-0.50; Units: K/mm3; Status: F Test: BASO #; Value: 0.1; Range: 0.0-0.2; Units: K/mm3; Status: F Test: LARGE UNSTAINED CELL #; Value: 0.1; Range: 0.0-0.4; Units: K/mm3; Status: F Lab Order: Lipase; SPEC'M 05/23/16 10:07 Test: LIPASE; Value: 109; Range: 73-393; Units: U/L; Status: F Lab Order: Liver Profile; SPEC'M 05/23/16 10:07 Test: AST/SGOT; Value: 16; Range: 15-37; Units: U/L; Status: F Test: ALT/SGPT; Value: 24; Range: 12-78; Units: U/L; Status: F Test: ALKALINE PHOSPHATASE; Value: 100; Range: 45-117; Units: U/L; Status: F Test: BILIRUBIN,TOTAL; Value: 0.5; Range: 0.2-1.0; Units: MG/DL; Status: F Test: BILIRUBIN,DIRECT; Value: < 0.1; Range: 0.0-0.2; Units: MG/DL; Status: F Test: TOTAL PROTEIN; Value: 7.5; Range: 6.4-8.2; Units: GM/DL; Status: F Test: ALBUMIN; Value: 3.7; Range: 3.2-5.2; Units: GM/DL; Status: F Test: ALBUMIN/GLOBULIN RATIO; Value: 0.97; Range: 1.00-1.93; Abnormal: Below low normal; Status: F Lab Order: Urinalysis; SPEC'M 05/23/16 10:07 Test: APPEARANCE, URINE; Value: CLOUDY; Range: CLEAR; Abnormal: Above high normal; Status: F Test: COLOR, URINE; Value: YELLOW; Range: YELLOW; Status: F Test: PH,URINE; Value: 5.0; Range: 5.0-9.0; Units: UNITS; Status: F Test: SPECIFIC GRAVITY URINE AUTO; Value: 1.023; Range: 1.002-1.035; Status: F Test: PROTEIN, URINE AUTO; Value: NEGATIVE; Range: NEGATIVE; Units: mg/dL; Status: F Test: GLUCOSE, URINE (UA) AUTO; Value: NEGATIVE; Range: NEGATIVE; Units: mg/dL; Status: F Test: KETONE, URINE AUTO; Value: TRACE; Range: NEGATIVE; Abnormal: Above high normal; Units: mg/dL; Status: F Test: UROBILINOGEN, URINE AUTO; Value: 2.0; Range: 0.0-2.0; Abnormal: Above high normal; Units: mg/dL; Status: F Test: BILIRUBIN, URINE AUTO; Value: NEGATIVE; Range: NEGATIVE; Status: F Test: NITRITE, URINE AUTO; Value: NEGATIVE; Range: NEGATIVE; Status: F Test: LEUKOCYTE ESTERASE, URINE AUTO; Value: 1+; Range: NEGATIVE; Abnormal: Above high normal; Status: F Test: BLOOD, URINE BLOOD; Value: 2+; Range: NEGATIVE; Abnormal: Above high normal; Status: F Test: WBC, URINE AUTO; Value: 3; Range: 0-3; Units: /HPF; Status: F Test: RBC, URINE AUTO; Value: 6; Range: 0-3; Abnormal: Above high normal; Units: /HPF; Status: F Test: BACTERIA, URINE AUTO; Value: 1+; Range: NEGATIVE; Abnormal: Above high normal; Status: F Test: SQUAMOUS EPITHELIAL CELL UR AU; Value: 22; Range: 0-6; Units: /HPF; Status: F Test: MUCUS, URINE; Value: SMALL; Range: NEGATIVE; Status: F Test: HYALINE CAST, URINE AUTO; Value: 0; Range: 0-1; Units: /LPF; Status: F Lab Order: Urine Culture; SPEC'M 05/23/16 10:07 Test: URINE CULTURE; Value: <EXTERNAL COMMENT eCWMed> FULL REPORT IN LAB NOTES (eCW and Medent).; Status: F Test: URINE CULTURE; Value: URINE CULTURE RESULT SPECIMEN APPEARS CONTAMINATED; Status: F Lab Order: CRP; SPEC'M 05/23/16 10:07 Test: C REACTIVE PROTEIN QUANTITATIV; Value: 4.39; Range: 0.00-0.30; Abnormal: Above high normal; Units: MG/DL; Status: F Radiology Order: CT ABD & PELVIS: Oral Contrast Only Test: CT ABD & PELVIS: Oral Contrast Only REASON FOR EXAMINATION: ?STONE, OV CYST;Appendicitis/RLQ Pain; CT STUDY OF THE ABDOMEN AND PELVIS WITH ORAL BUT WITHOUT IV CONTRAST:; ; HISTORY: Ovarian cyst, question stone or appendicitis. Right lower quadrant; pain.; ; No comparison imaging.; ; CT FINDINGS: Preliminary blister packing machine tender radiograph is noncontributory. The lung bases; are clear. The liver and the spleen are normal in size and homogeneous in; texture. No adrenal lesion is seen. Pancreas is unremarkable. No gallbladder; abnormality is observed. There is no evidence of hydronephrosis affecting either; kidney. No intrarenal calculus mass or cyst is seen. Normal appendix is seen; posterior to the cecum in the right mid to lower abdomen. Small and large; intestinal bowel loops are unremarkable. No ureteral stone or bladder calculus; is seen. There are phleboliths in the left pelvis. Uterus is tipped slightly to; the right. No ovarian mass or cyst is seen. Normal inguinal lymph nodes are; seen bilaterally. No pelvic mass or adenopathy is seen. No abdominal wall; defect or bony destructive lesion seen.; ; IMPRESSION: No acute abdominal or pelvic abnormality. Normal appendix seen. No; urinary tract calculus or hydronephrosis seen.; ; ; Signed by; John Gordon MD 05/23/2016 02:01 P; Outcome: 12:10 Discharge ordered by Provider. dt4 12:18 Discharge Assessment: Patient awake, alert and oriented x 3. No cognitive and/or pml functional deficits noted. Patient verbalized understanding of disposition instructions. patient administered narcotics - no. The following High Risk Discharge criteria are identified: None. Discharged to home ambulatory. Condition: good Condition: stable. Discharge instructions given to patient, Instructed on discharge instructions, follow up and referral plans. medication usage, Demonstrated understanding of instructions, medications, Pt was receptive of discharge instructions/ teaching. Prescriptions given X 2. CT Study completed. Property sent home with patient. 12:19 Patient left the ED. pml Signatures: Dispatcher [employer] EDMS Nicole Osorio, Hose Wrapper Unit lbd AbdiazizjovanniagustoSusan, Reg Reg gb JocelinJose jerome, Reg Reg lg Kathy Addison RN RN jo3 Reji Gaines, SALES RECRUITER SALES RECRUITER dd6 Aleksandra Govea RN RN pml Yoselin Jay, PA-C PA-C dt4 Steve Bravo rn1 Kellie Antonio,RN RN kc3 Corrections: (The following items were deleted from the chart) 09:38 09:33 Presenting complaint: Patient states: Was sent by [facility] for r/o appe jo3 based on RLQ pain jo3 Chart Complete MTDD
== END 2016-05-23 12:19 | disposition home or self-care (01) ==
LOC: M ED 09:28
DX: N39.0 Urinary tract infection, site not specified (principal); Z72.0 Tobacco use; Z79.899 Other long term (current) drug therapy
CPT/HCPCS: 36415; 74176; 80048; 80076; 81001; 81025; 83690; 85025; 86140; 87086; 96361; 96374; 99284; J1885; Q9963